=== PATIENT | female | born 1965 | race Caucasian/White ===

== ENCOUNTER → 2016-11-28 | Outpatient (CLI) | payer OTHER ==
[~2016-11-28] MED LIST: CLARITIN10 MG PO; LORTAB 7.5-5001 TAB PO; MUCINEX DM1 TAB.SR . PO; PROTONIX PO
--- NOTE | ~2016-11-28 | CT57 ---
[facility] A Service of [facility] & [facility] RADIOLOGY TEXT RESULTS PATIENT: KASSANDRA HENLEY [facility] 65 UNIT #: [id number] AGE: [address]: Christen Reyes SEX: F ORDER DR: [id number] [facility] [address] [place], [place] [address] [id number] O MR#: [id number] Acc #: [id number] NAME: KASSANDRA HENLEY : 1965 SEX: F STUDY DATE/TIME: 11/28/2016 10:21 UNIT: [facility] ROOM: STUDY DESCRIPTION: CT Chest Wo Cont Attending Physician: Christen Reyes A.P.R.N. Referring Physician: Christen Reyes A.P.R.N. Ordering Physician: Christen Reyes A.P.R.N. Primary Care Physician: Danna Werner A.P.R.N. MEDICAL IMAGING REPORT This report is preliminary unless electronic signature is present EXAM High-resolution chest CT without contrast INDICATIONS Shortness of breath for 1 year upon exertion. TECHNIQUE [address] of the chest was performed without contrast. Selected HRCT imaging was obtained in the supine and prone positioning. No comparisons are available. The CT exam was performed with one or more of the following radiation dose reduction techniques: automatic exposure control, adjustment of mA and/or kV according to patient size, and iterative reconstruction. FINDINGS There is a calcified granuloma in the right lung apex. There is minimal emphysematous change, mainly within the right lung apex. There is no evidence of airspace consolidation or suspicious pulmonary nodule. Selected HRCT imaging demonstrates no evidence of bronchiectasis or diffuse infiltrative lung disease. There is no lymphadenopathy or pleural effusion. Tiny hiatal hernia. Limited imaging in the upper abdomen shows fatty infiltration of the liver. The bone windows demonstrate degenerative changes of the spine. IMPRESSION 1. Large calcified granuloma in the right lung apex. 2. No evidence of diffuse interstitial lung disease or bronchiectasis. 3. Minimal emphysematous change in the right lung apex. Dictated by... [place] M.D. [facility] A Service of [facility] RADIOLOGY TEXT RESULTS PATIENT: KASSANDRA HENLEY LOCATION: [facility] : 65 UNIT #: [id number] AGE: [address]: Christen Reyes SEX: F ORDER DR: THIS IS AN ELECTRONICALLY VERIFIED REPORT [place] M.D. at 12/01/2016 7:31 AM LEO/laura TD: 11/30/2016 08:10 JOB #: [id number] MEDICAL IMAGING REPORT Page 1 of 1 COPY
== END | disposition home or self-care (01) ==
LOC: CCAT 08:00
DX: R06.02 Shortness of breath (principal); R93.8 Abnormal findings on diagnostic imaging of other specified body structures; J84.10 Pulmonary fibrosis, unspecified
CPT/HCPCS: 71250